=== PATIENT | male | born 1985 | race Caucasian/White ===

== ENCOUNTER 2023-09-04 09:28 | Outpatient (CLI) | payer OTHER ==
--- NOTE | 2023-09-04 10:22 | Sleep Patient Instructions ---
Sleep Center Visit Summary - Patient Visit Information Reason for Visit: Initial consult for evaluation of sleep disordered breathing and other sleep issues. - Patient Instructions Instructions Attached: Sleep Study Additional Instructions: You will be completing a sleep study, either an in-lab polysomnography (PSG) or home sleep study (HST). You will follow-up in the sleep care office after the sleep study is completed to hear the results and talk about therapy, if needed. You will be called by our office staff to schedule this appointment, but you may contact us with any questions. - Clinic Information Contact: [facility] [address] [place] [address] [email or web address] T: [phone]
--- NOTE | 2023-09-04 10:31 | SLEEP CARE CONSULTATION ---
Information from patient questionnaire entered by Jun Guzman. I have reviewed and concur with the information entered by Jun Guzman. This document represents the service I personally performed and the decisions made by me, Gia Gonzales ARNP. History of Present Illness Service Date and Time: 09/04/2023927 Reason for Visit: New patient Chief Complaint: reports: Insomnia, Snoring, Observed pauses in breathing, Fatigue Date of Onset: few years Usual bedtime: [id number] Time it takes to fall asleep: 1-2HRS with melatonin or may be 2-3 hours Snores at night: Yes Observed to quit breathing while asleep: Yes Sleeps alone due to snoring: No Number of times waking at night: 1-2 Reasons for waking at night: reports: Bathroom, Other (UNKNOWN) Toss, Turn, or Twitch while sleeping: Yes Recalls having dreams: No Usually gets out of bed at: 0400; weekends 0600 Feels refreshed in the morning: No Morning headache: No Sleepy or fatigued during the day: Yes Ever fallen asleep while driving: No Takes day naps: No Dreams during day naps: No Prior sleep studies: No Additional HPI information: I had the pleasure of seeing JEANE GARCIA today regarding the possibility of him having a sleep disorder. His current complaints are insomnia, snoring, observed pauses in breathing and fatigue. He says he has been super fatigued. He wakes up every morning tired and fatigued during the day. He is using caffeine during the day. His tells him that he snores and will stop breathing during his sleep. He does mumble in his sleep occasionally and has "flailed" his arms in his sleep. He says his symptoms have improved since he stopped drinking. He also lost about 25 pounds but has since gained 15 pounds back on. He says that he lays down between 9 PM and 11 PM. He will fall asleep in 1-2 hours as long as he takes melatonin. He says without melatonin he can take 2-3 hours to fall asleep. He normally gets up around 4 AM on work days and 6 AM on days off. - Parasomnia Symptoms Ever been unable to move upon waking from sleep: No Walks in sleep: No Talks in sleep: Yes (mumbling) Ever acted out dreams in sleep: Yes ( says he will "flail" and mumble in sleep occasionally) Ever felt weak in the knees when startled or emotional: No Bothered by creepy, crawly, restless sensations in legs: No Problems with memory or concentration: No Subjective Initial [place] Sleepiness Scale score: 8 (09/01/23) Past Medical History Past Medical History: reports: Hypertension Social History The patient's occupation is a AM. Patient is and lives in [place]. Have you smoked in the past 12 months: No Alcohol use: No Caffeine use: Yes Caffeine amount and frequency: 2-3 CUPS A DAY Family History Family history of sleep disordered breathing: Yes Family Hx Sleep Apnea: Father: Snoring Allergies and Home Medications Known drug allergies: No Drug allergies reviewed: Yes Home medication list reviewed: Yes (as listed) Allergy and home medication list: Allergies No Known Drug Allergies Allergy (Verified 09/04/23 09:46) Home Medications Acetaminophen [Tylenol] See Rx Instructions .ROUTE .COMPLEX 09/04/23 [History] Lisinopril [Zestril] See Rx Instructions .ROUTE .COMPLEX 09/04/23 [History] Melatonin See Rx Instructions .ROUTE .COMPLEX 09/04/23 [History] Review of Systems Weight gain over past 5 years: 15 gained back after loss Weight loss over past 5 years: 25 Cardiovascular: reports: high blood pressure Gastrointestinal: denies: heartburn Neurological: denies: headaches Psychiatric: denies: anxiety, depression Ear/Nose/Throat: reports: wisdom teeth removed. denies: tonsillectomy Musculoskeletal: reports: joint pain, back pain Immunologic: reports: sneezing Physical Exam Vital signs obtained and entered by: JUN Cedillo MA Blood Pressure: 153/92 (RIGHT ARM) Cuff size: regular Heart Rate: 79 O2 Saturation: 99 Height: 5 ft 9 in Weight: 214 lb 12.8 oz Body Mass Index: 31.7 BMI Classification: Obese Neck circumference: 16 Nostrils: patent to airflow Mouth and throat: narrow oropharynx Soft palate: long Hard palate: normal Uvula: edematous Uvula visualization: 50% Mallampati Class II Tongue: enlarged in size with teeth griggs on lateral edges Tonsils: 1+ Neck: normal w/o lymphadenopathy or thyromegaly Heart: regular rate and rhythm Lungs: clear bilaterally Impression and Plan 1. Suspected Obstructive Sleep Apnea-Hypopnea Syndrome, as suggested by a history of irregular snoring, observed cessation of breath while asleep and unrefreshed sleep. He has a history of hypertension. Narrow oropharynx and obesity are common predisposing factors for obstructive sleep apnea-hypopnea syndrome. I recommend proceeding to polysomnography to confirm the diagnosis and to assess severity. If the patient has significant sleep disordered breathing, a manual CPAP titration study will also be performed to find the optimal treatment pressure. I informed the patient of what the sleep studies involve and after some discussion, obtained agreement to proceed. The pathophysiology of obstructive sleep apnea-hypopnea syndrome was discussed with the patient and health risks of cardiovascular and cerebrovascular disease if not treated. Risks of drowsy driving discussed in detail and patient advised to avoid long distance driving and to extract puller at the first sign of drowsiness. Patient agreed to plan. * Schedule polysomnography * Avoid long distance driving or driving when feeling sleepy. * Avoid alcohol, sedative and muscle relaxant around bedtime. * Attempt to lose weight. * Review instructions provided by trained office staff on how to prepare for the sleep study. * Return for follow-up after sleep study completed. Counseling Topics: Weight loss health impact Follow up with Sleep Care in: other (for sleep study results) Plan: PSG Visit Type: In Office Time Spent with Patient (minutes): 31 Provider Statement: I spent 100% of the Face to Face Visit with the patient with greater than 50% spent counseling the patient and coordination of care.
[2023-09-04 10:39] VITALS: BP 153/92; O2SAT 99
== END 2023-09-04 09:29 | disposition home or self-care (01) ==
LOC: SC 09:28
PROVIDERS: ATTEND Nurse Practitioner Family
DX: R06.81 Apnea, not elsewhere classified (principal); R06.83 Snoring; G47.8 Other sleep disorders
CPT/HCPCS: 99203; 99212

== ENCOUNTER 2023-10-16 13:31 | Outpatient (CLI) | payer OTHER ==
--- NOTE | 2023-10-16 13:54 | Sleep Patient Instructions ---
Sleep Center Visit Summary - Patient Visit Information Reason for Visit: Sleep study follow-up - Patient Instructions Additional Instructions: Your sleep study today was negative for significant sleep disordered breathing. You had some mild periodic leg movements of sleep with some during REM sleep (dreaming sleep). You may continue to take melatonin nightly to reduce leg movements and to help you to go to sleep. You were found to have episodes of snoring. There are different ways to control snoring including weight loss, oral devices made by a dentist or surgical options through ENT specialist. You should not use oral devices that do not fit properly because they can affect your bite. You should also check insurance coverage of oral devices for snoring because they may not be cover well. You may obtain a referral to an ENT specialist through your primary provider. Follow-up as needed. - Clinic Information Contact: [facility] [address] [place] [address] [email or web address] T: [phone]
--- NOTE | 2023-10-16 13:56 | SLEEP CARE CONSULTATION ---
Information from patient questionnaire entered by Tiffanie Guzman. I have reviewed and concur with the information entered by Tiffanie Guzman. This document represents the service I personally performed and the decisions made by , Gia Gonzales ARNP. History of Present Illness Service Date and Time: 10/16/2023 1331 Initial [place] Sleepiness Scale score: 8 (09/01/23) Current [place] Sleepiness Scale score: 7 (10/16/23) Additional HPI information: JEANE GARCIA returns for follow up and results of the recently performed polysomnography. The patient was informed of the following findings: No significant sleep disordered breathing with an average AHI of 1.6 and sissy oxygen saturation of 91%. He also had mild PLMs and possible REM behavior disorder connected to PLMs during REM sleep. I explained the pathophysiology behind obstructive sleep apnea. Patient does not have sleep apnea and was advised how weight gain could increase the risk of developing sleep apnea in the future. I strongly encouraged the patient to lose weight. Patient has light to moderate snoring. Snoring can be reduced by weight loss. Weight loss is best achieved with diet consult. Patient instructed to contact PCP for referral. Snoring can also be treated with an oral appliance from a dentist. Advised to check insurance coverage. In addition, an ENT evaluation can be do to see if other treatment is indicated. Patient does not drink alcohol. Patient was cautioned about risks of drowsy driving until sleepiness symptoms resolve. Patient denies drowsy driving. Sleep Study - Results Type of Sleep Study: Polysomnography (COMPLETED 09/22/23) Prior sleep studies: No Polysomnography/Home Sleep Study results: IMPRESSION: The quality of the study is good. The patient had minimally reduced sleep efficiency. Except for mild sleep fragmentation, the sleep architecture was normal. Respiratory monitoring showed no significant sleep disordered breathing (AHI = 1.6) or hypoxia (sissy oxygen saturation of 91%). The patient slept adequately in supine position (supine AHI = 0.9; non-supine = 1.76). Snore was light to moderate in intensity. There was mild periodic leg movement of sleep4.5. Cardiac rhythm was normal sinus rhythm without significant arrhythmia. There was arm and leg movement all night. CONCLUSIONS and RECOMMENDATIONS: 1. Periodic limb movement (ICD G47.61), mild, treatment may be indicated. Clinical correlation advised. 2. REM behavior disorder (ICD-10 G47.52). Recommend further workup and treatment as appropriate. The movement may be related to periodic limb movement of sleep. Allergies and Home Medications Known drug allergies: No Drug allergies reviewed: Yes Home medication list reviewed: Yes (no changes) Allergy and home medication list: Allergies No Known Drug Allergies Allergy (Verified 10/13/23 11:55) Review of Systems Review of systems same as previous: Yes (NO CHANGE) Physical Exam Vital signs obtained and entered by: TIFFANIE Cedillo MA Blood Pressure: 141/82 (RIGHT ARM) Cuff size: long Heart Rate: 86 O2 Saturation: 96 Height: 5 ft 9 in Weight: 219 lb 9.6 oz Body Mass Index: 32.4 BMI Classification: Obese Impression and Plan 1. Periodic limb movement, mild, that did not fragment patients sleep. Periodic limb movement of sleep (PLMS) is characterized by episodes of rep etitive limb movements that occur during sleep and usually involve the lower limbs. The etiology is unknown. Caffeine can also aggravate PLMS and should be avoided. Sleep hygiene methods can also improve sleep as well as lifestyle changes such as regular exercise. It was also noted the possibility of REM behavior disorder because he had abnormal leg and arm movements during the night of study with some during REM sleep. They could be associated with the mild PLMs but may also indicate RBD in some people. It is important to make sure the sleeping area is safe for patient and bedpartners if there is more than small movements that could cause injury. Taking 10 mg melatonin nightly is one of the recommended treatment of this condition and has few side effects. He denies significant head injuries. He denies family history of Alzheimer's or other dementia. Patient was advised that no treatment is needed at this time. If symptoms increase, then further evaluation is indicated. He voiced understanding. 2. Snoring but no significant sleep disordered breathing. Patient advised that often weight loss will reduce snoring as well as apnea risk. An oral appliance can also be used for snoring. This would require a dental consultation. Patient cautioned not to use other online appliances as can cause bite issues. Patient is advised to check if insurance will cover. An ENT consult can also be helpful to determine if any other treatment is an option. 3. Obesity, unspecified. Currently patients BMI is 32.4. Obesity increases the risk of apnea, CPAP pressure requirements and overall health risks especially cardiovascular and diabetes. Thus patient is advised to lose weight. * Continue with melatonin nightly * Attempt to lose weight * Avoid alcohol consumption near bedtime * The patient is cautioned about driving until sleepiness is completely resolved. * Return as needed for follow up. Counseling Topics: Weight loss health impact Follow up with Sleep Care in: as needed Visit Type: In Office Time Spent with Patient (minutes): 20 Provider Statement: I spent 100% of the Face to Face Visit with the patient with greater than 50% spent counseling the patient and coordination of care.
[2023-10-16 14:05] VITALS: BP 141/82; O2SAT 96
== END 2023-10-16 13:32 | disposition home or self-care (01) ==
LOC: SC 13:31
PROVIDERS: ATTEND Nurse Practitioner Family
DX: G47.61 Periodic limb movement disorder (principal); R06.83 Snoring; E66.9 Obesity, unspecified; Z68.32 Body mass index [BMI] 32.0-32.9, adult
CPT/HCPCS: 99212; 99213